=== PATIENT | female | born 1990 | race Caucasian/White ===

== ENCOUNTER 2023-05-31 10:03 | Emergency (ER) | payer MEDICARE, SELFPAY ==
[2023-05-31] VITALS (19 sets, daily range): BP systolic 113–129; BP diastolic 63–78; PULSE 58–75; RESP 18; TEMP 37.1; O2SAT 95–98; BMI 37.8
--- NOTE | 2023-05-31 11:22 | CRLHL7_ITS ---
For Patients: As a result of the Century Cures Act, medical imaging exams and procedure reports are released immediately into your electronic medical record. You may view this report before your referring provider. If you have questions, please contact your health care provider. INDICATION: Chest pain COMPARISON: None. TECHNIQUE: PA and lateral 2 view chest radiograph. FINDINGS: The lungs are well expanded. No focal consolidations. No pulmonary edema. No pleural effusion. No pneumothorax. No pneumomediastinum. Normal cardiomediastinal silhouette. Bones: Normal for age. IMPRESSION: Lungs are clear. Normal chest radiographs. Dictated by Jaylin Rogers MD @ 05/31/2023 1:07:41 PM (Electronically Signed)
[2023-05-31 11:36] LABS: Basophils Absolute Auto 0.04 K/uL (0.00-0.30); Basophils Percent Auto 0.5 % (0.0-3.0); Eosinophils Absolute Auto 0.11 K/uL (0.00-0.50); Eosinophils Percent Auto 1.4 % (0.0-7.0); Hematocrit 36.3 % (33.0-51.0); Hemoglobin* 11.1 gm/dL (12.0-16.0); Immature Granulocytes Abs Auto 0.01 K/uL (0.00-0.30); Immature Granulocytes Pct Auto 0.1 %; Lymphocytes Absolute Auto 1.75 K/uL (0.90-2.90); Lymphocytes Percent Auto 22.7 % (20-44); Mean Corpuscular HGB Conc 31 gm/dL (32-36); Mean Corpuscular Hemoglobin 25 pg (26-34); Mean Corpuscular Volume 80 fL (80-100); Monocytes Percent Auto 9.3 % (0.0-11.0); Neutrophils Absolute Auto 5.08 K/uL (1.7-7.0); Platelet Count* 331 K/uL (140-440); Red Blood Count 4.53 m/uL (4.00-5.20); White Blood Count* 7.71 K/uL (4.50-11.00)
[2023-05-31] MEDS: KETOROLAC 15 MG/ML inj IVP (11:37)
--- NOTE | 2023-05-31 11:40 | ED_ITS ---
HPI - Chest Pain General Date Seen: 05/31/23 Chief Complaint: Chest Pain Stated Complaint: chest pain Time Seen by Provider: 05/31/23 11:00 Source: patient Mode of arrival: ambulatory Limitations: no limitations History of Present Illness HPI narrative: Patient is a 32-year-old female with previous gastric bypass surgery 4 years prior and losing 350 lb presenting to emergency department for lightheadedness and chest pain. She states she has been weak and having this right-sided chest pain since this morning. It is tender to the touch. It radiates to her right shoulder. She does not remember injuring herself or any recent heavy lifting. She states with the lightheadedness she has had symptoms like this before. Has had issues with anemia since the procedure but is not yet needed a transfusion. She states in the past when she has had symptoms like this she will eat something and they will improved. She tried to eat today and symptoms did not improve. She states she does not feel like she is about to pass out but still does not feel like herself. She initially felt like she was going to pass out but did not. Denies fevers, chills, abdominal pain, headache, vision changes, diarrhea, constipation. Related Data Home Medications Medication Instructions Recorded Confirmed omeprazole 40 mg capsule,delayed 40 mg PO BID 05/31/23 05/31/23 release Allergies Allergy/AdvReac Type Severity Reaction Status Date / Time codeine Allergy Verified 05/31/23 10:09 Review of Systems Status of ROS Reports: 10 or more systems reviewed and unremarkable except as noted in History and below [facility] Social History Smoking Status: Current every day smoker What tobacco products do you use: cigarettes Smoking packs per day: 1 Smoking cigarettes per day: 20.0 Years smoked: 3 Smoking pack-years: 3.00 Do you use any of these nicotine containing products: None Second hand tobacco smoke exposure: Yes How often do you have a drink containing alcohol: 2-4 times a month How many standard drinks containing alcohol do you have on a typical day: 3 or 4 How often do you have six or more drinks on one occasion: Monthly AUDIT-C Alcohol total score: 5 Non-prescribed substance use: denies use service: No Exam Narrative Exam Narrative: Const: Well-nourished, Well-developed, in mild distress Eyes: PERRL, no conjunctival injection, and symmetrical lids HENT: Atraumatic external nose and ears. Moist mucous membranes. Neck: Symmetric, trachea midline, No thyromegaly. CVS: RRR, No murmurs or gallops. Peripheral pulses 2+ and equal in all extremities RESP: Unlabored respiratory effort. Clear to auscultation bilaterally. GI: Nontender/Nondistended, No rebound or guarding. MSK:Extremities w/o deformity, Normal Active ROM. Tenderness to palpation right upper chest Skin: Warm, Dry. No rashes or lesions. Neuro: Normal Muscle tone, No focal neurological deficits. Psych: Awake, Alert, & Oriented x3. Appropriate mood and affect. Const Vital Signs, click to edit/add: Vital Signs - 24 hr 05/31/23 10:12 05/31/23 10:37 05/31/23 10:45 Temperature 98.8 F Pulse Rate 75 62 Pulse Rate [Apical] 71 Respiratory Rate 18 Blood Pressure Blood Pressure [Right Upper Arm] 129/78 Pulse Oximetry 95 97 96 Oxygen Delivery Method Room Air 05/31/23 11:00 05/31/23 11:02 05/31/23 11:15 Temperature Pulse Rate 63 59 L 59 L Pulse Rate [Apical] Respiratory Rate Blood Pressure 115/66 Blood Pressure [Right Upper Arm] Pulse Oximetry 97 96 96 Oxygen Delivery Method 05/31/23 11:30 05/31/23 11:32 05/31/23 11:33 Temperature Pulse Rate 59 L 65 67 Pulse Rate [Apical] Respiratory Rate Blood Pressure 113/63 Blood Pressure [Right Upper Arm] Pulse Oximetry 95 96 95 Oxygen Delivery Method 05/31/23 11:45 05/31/23 12:00 05/31/23 12:05 Temperature Pulse Rate 66 69 65 Pulse Rate [Apical] Respiratory Rate Blood Pressure Blood Pressure [Right Upper Arm] Pulse Oximetry 95 96 97 Oxygen Delivery Method 05/31/23 12:15 05/31/23 12:30 05/31/23 12:34 Temperature Pulse Rate 62 64 63 Pulse Rate [Apical] Respiratory Rate Blood Pressure Blood Pressure [Right Upper Arm] Pulse Oximetry 96 96 97 Oxygen Delivery Method 05/31/23 12:46 05/31/23 13:00 05/31/23 13:02 Temperature Pulse Rate 58 L 66 64 Pulse Rate [Apical] Respiratory Rate Blood Pressure 115/71 Blood Pressure [Right Upper Arm] Pulse Oximetry 97 98 96 Oxygen Delivery Method 05/31/23 13:15 Temperature Pulse Rate 59 L Pulse Rate [Apical] Respiratory Rate Blood Pressure Blood Pressure [Right Upper Arm] Pulse Oximetry 98 Oxygen Delivery Method Course Vital Signs Vital signs: Initial Vital Signs Temperature 98.8 F 05/31/23 10:12 Temperature Source Temporal Artery Scan 05/31/23 10:12 Pulse Rate 71 05/31/23 10:12 Pulse Rhythm Regular 05/31/23 10:12 Respiratory Rate 18 05/31/23 10:12 Blood Pressure 129/78 05/31/23 10:12 Blood Pressure Mean 95 05/31/23 10:12 Blood Pressure Position Supine 05/31/23 10:12 Pulse Oximetry 95 05/31/23 10:12 Oxygen Delivery Method Room Air 05/31/23 10:12 Vital Signs Temperature 98.8 F 05/31/23 10:12 Pulse Rate 71 05/31/23 10:12 Respiratory Rate 18 05/31/23 10:12 Blood Pressure 129/78 05/31/23 10:12 Pulse Oximetry 95 05/31/23 10:12 Oxygen Delivery Method Room Air 05/31/23 10:12 Temperature 98.8 F 05/31/23 10:12 Pulse Rate 59 L 05/31/23 13:15 Respiratory Rate 18 05/31/23 10:12 Blood Pressure 115/71 05/31/23 13:02 Pulse Oximetry 98 05/31/23 13:15 Oxygen Delivery Method Room Air 05/31/23 10:12 Medications Administered Medications: Discontinued Medications Generic Name Dose Route Start Last Admin Trade Name Rohini PRN Reason Stop Dose Admin Lactated Ringer's 1,000 mls @ 1,000 mls/hr 05/31/23 11:56 05/31/23 12:51 Lactated Ringers 1000 Ml IV 05/31/23 12:55 Infused .Q1H ONE Infusion Ketorolac Tromethamine 15 mg 05/31/23 11:22 05/31/23 11:37 Ketorolac 15 Mg/Ml Inj IVP 05/31/23 11:23 15 mg ONCE ONE Administration MDM - Chest Pain MDM Narrative Medical decision making narrative: Patient is a 32-year-old female presenting for chest pain lightheadedness. Chest pain started today and is reproducible on palpation. Likely musculoskeletal nature but we will do cardiac workup to further evaluate this. She is also feeling lightheaded. She has history of anemia and has never checked her TSH before for that she is aware of this could be a thyroid issue foreign anemia. Of note the room does smoke marijuana. Symptoms could also be from electrolyte issue. Lab work returns showing no concerning abnormalities. Hemoglobin today 11.1 and would unlikely to be causing her symptoms. After the L fluids she was able to walk up to go the bathroom and is feeling much better. COVID and flu negative. Drug screen does show marijuana in her system which was expected. Does not appear to be hypoglycemic. Chest x-ray showed no acute findings. EKG shows no concerning findings. Insert what exactly is causing his symptoms. Could possibly be related to the marijuana. She will otherwise be discharged home. Lab Data Labs: Lab Results 05/31/23 05/31/23 05/31/23 Range/Units 10:48 11:00 11:29 WBC 7.71 (4.50-11.00) K/uL RBC 4.53 (4.00-5.20) m/uL Hgb 11.1 L (12.0-16.0) gm/dL Hct 36.3 (33.0-51.0) % MCV 80 (80-100) fL MCH 25 L (26-34) pg MCHC 31 L (32-36) gm/dL RDW Coeff of Autumn 17.0 H (11.5-15.5) % Plt Count 331 (140-440) K/uL Neut % (Auto) 66.0 (42.0-72.0) % Lymph % (Auto) 22.7 (20-44) % Treasure % (Auto) 9.3 (0.0-11.0) % Eos % (Auto) 1.4 (0.0-7.0) % Baso % (Auto) 0.5 (0.0-3.0) % Neut # (Auto) 5.08 (1.7-7.0) K/uL Lymph # (Auto) 1.75 (0.90-2.90) K/uL Treasure # (Auto) 0.70 (0.00-0.90) K/UL Eos # (Auto) 0.11 (0.00-0.50) K/uL Baso # (Auto) 0.04 (0.00-0.30) K/uL Abs Immat Gran (auto) 0.01 (0.00-0.30) K/uL Imm/Tot Granulo (auto) 0.1 % Sodium 140 (135-149) mmol/L Potassium 3.9 (3.6-5.1) mmol/L Chloride 110 (96-114) mmol/L Carbon Dioxide 23 (20-32) mmol/L Anion Gap 7 (7-15) mEq/L BUN 10 (5-24) mg/dL Creatinine 0.6 (0.5-1.5) mg/dL Estimated Creat Clear 115.16 Estimated GFR 121 ml/min Glucose 87 (60-115) mg/dL Calcium 8.3 L (8.4-10.6) mg/dL Total Bilirubin 0.2 (0.1-1.5) mg/dL AST 26 (12-35) U/L ALT 18 (4-35) U/L Alkaline Phosphatase 55 (40-150) U/L Total Protein 6.8 (6.0-8.3) g/dL Albumin 3.9 (3.3-5.0) g/dL TSH 1.770 (0.270-4.20) uIU/mL Urine Color (Yellow) Urine Appearance (Clear) Urine pH (5.0-8.5) Ur Specific [place] (1.000-1.030) Urine Protein (Negative) Urine Glucose (UA) (Negative) Urine Ketones (Negative) Urine Blood (Negative) Urine Nitrite (Negative) Urine Bilirubin (Negative) Urine Urobilinogen (0.2-1.0) Ur Leukocyte Esterase (Negative) Urine RBC (0-2) Urine WBC (0-5) Ur Squamous Epith Cells (None-Few) Urine Bacteria (None) Urine Mucus (None) Urine Opiates Screen (Negative) Ur Oxycodone Screen (Negative) Urine Methadone Screen (Negative) Ur Propoxyphene Screen Ur Barbiturates Screen (Negative) U Tricyclic Antidepress (Negative) Ur Phencyclidine Scrn (Negative) Ur Amphetamines Screen (Negative) U Methamphetamines Scrn (Negative) U Benzodiazepines Scrn (Negative) Urine Cocaine Screen (Negative) U Marijuana (THC) Screen (Negative) Ur Drug Screen Comment SARS-CoV-2 (PCR) Negative SARS-CoV-2 (Negative) Influenza Type A (PCR) Negative PCR FLU A (Negative) Influenza Type B (PCR) Negative PCR FLU B (Negative) Lab Acknowledgement POC Troponin I 0.00 L (0.01-0.04) ng/ml 05/31/23 05/31/23 05/31/23 Range/Units 13:23 13:40 Unknown WBC (4.50-11.00) K/uL RBC (4.00-5.20) m/uL Hgb (12.0-16.0) gm/dL Hct (33.0-51.0) % MCV (80-100) fL MCH (26-34) pg MCHC (32-36) gm/dL RDW Coeff of Autumn (11.5-15.5) % Plt Count (140-440) K/uL Neut % (Auto) (42.0-72.0) % Lymph % (Auto) (20-44) % Treasure % (Auto) (0.0-11.0) % Eos % (Auto) (0.0-7.0) % Baso % (Auto) (0.0-3.0) % Neut # (Auto) (1.7-7.0) K/uL Lymph # (Auto) (0.90-2.90) K/uL [place] # (Auto) (0.00-0.90) K/UL Eos # (Auto) (0.00-0.50) K/uL Baso # (Auto) (0.00-0.30) K/uL Abs Immat Gran (auto) (0.00-0.30) K/uL Imm/Tot Granulo (auto) % Sodium (135-149) mmol/L Potassium (3.6-5.1) mmol/L Chloride (96-114) mmol/L Carbon Dioxide (20-32) mmol/L Anion Gap (7-15) mEq/L BUN (5-24) mg/dL Creatinine (0.5-1.5) mg/dL Estimated Creat Clear Estimated GFR ml/min Glucose (60-115) mg/dL Calcium (8.4-10.6) mg/dL Total Bilirubin (0.1-1.5) mg/dL AST (12-35) U/L ALT (4-35) U/L Alkaline Phosphatase (40-150) U/L Total Protein (6.0-8.3) g/dL Albumin (3.3-5.0) g/dL TSH (0.270-4.20) uIU/mL Urine Color Yellow (Yellow) Urine Appearance Clear (Clear) Urine pH 7.0 (5.0-8.5) Ur Specific [place] 1.020 (1.000-1.030) Urine Protein Negative (Negative) Urine Glucose (UA) Negative (Negative) Urine Ketones Negative (Negative) Urine Blood Negative (Negative) Urine Nitrite Negative (Negative) Urine Bilirubin Negative (Negative) Urine Urobilinogen 4.0 A (0.2-1.0) Ur Leukocyte Esterase Negative (Negative) Urine RBC 0-2 (0-2) Urine WBC 0-2 (0-5) Ur Squamous Epith Cells Few (None-Few) Urine Bacteria None (None) Urine Mucus Moderate A (None) Urine Opiates Screen Negative (Negative) Ur Oxycodone Screen Negative (Negative) Urine Methadone Screen Negative (Negative) Ur Propoxyphene Screen Not Reportable Ur Barbiturates Screen Negative (Negative) U Tricyclic Antidepress Negative (Negative) Ur Phencyclidine Scrn Negative (Negative) Ur Amphetamines Screen Negative (Negative) U Methamphetamines Scrn Negative (Negative) U Benzodiazepines Scrn Negative (Negative) Urine Cocaine Screen Negative (Negative) U Marijuana (THC) Screen POSITIVE A (Negative) Ur Drug Screen Comment See Note SARS-CoV-2 (PCR) (Negative) Influenza Type A (PCR) (Negative) Influenza Type B (PCR) (Negative) Lab Acknowledgement Test Added POC Troponin I (0.01-0.04) ng/ml Imaging Data Chest x-ray: Radiologist's impression: Lungs are clear. Normal chest radiographs. Dictated by Jaylin Rogers MD @ 05/31/2023 1:07:41 PM ECG Data Attestation: I personally reviewed and interpreted this ECG as follows: Interpretation: EKG shows normal sinus rhythm with a rate of 66 beats per minute, normal intervals, normal axis, no ST or T-wave abnormalities Discharge Plan Discharge Clinical Impression: Chest pain Qualifiers: Chest pain type: unspecified Qualified Code(s): R07.9 - Chest pain, unspecified Patient Disposition: Home, Self-Care Condition: Stable Instructions: Chest Wall Pain (ED) Additional Instructions: If symptoms persist follow-up with the primary care provider. Return to emergency department for new or worsening symptoms Prescriptions: No Action omeprazole 40 mg capsule,delayed release(DR/EC) 40 mg PO BID Follow Up/Referrals: Provider,Not a Local [Primary Care Provider] - Stand Alone Forms: Se[employer] Info Instructions
[2023-05-31 11:43] LABS: Slide Review Reflex No
[2023-05-31 11:45] LABS: Albumin* 3.9 g/dL (3.3-5.0); Chloride* 110 mmol/L (96-114); Potassium* 3.9 mmol/L (3.6-5.1); Sodium* 140 mmol/L (135-149)
[2023-05-31 11:48] LABS: Alanine Aminotransferase* 18 U/L (4-35); Alkaline Phosphatase* 55 U/L (40-150); Anion Gap 7 mEq/L (7-15); Aspartate Amino Transferase* 26 U/L (12-35); Bilirubin Total* 0.2 mg/dL (0.1-1.5); Blood Urea Nitrogen* 10 mg/dL (5-24); Carbon Dioxide* 23 mmol/L (20-32); Creatinine* 0.6 mg/dL (0.5-1.5); Est. Creatinine Clearance* 115.16; Estimated Glomerular Filt Rate 121 ml/min; Glucose* 87 mg/dL (60-115); Total Protein* 6.8 g/dL (6.0-8.3)
[2023-05-31 11:49] LABS: Calcium* 8.3 mg/dL (8.4-10.6)
[2023-05-31] MEDS: LACTATED RINGERS 1000 ML 1,000 ML IV (12:04)
[2023-05-31 12:30] LABS: PCR FLU A Negative PCR FLU A (Negative); PCR FLU B Negative PCR FLU B (Negative)
[2023-05-31 12:31] LABS: SARS PCR* Negative SARS-CoV-2 (Negative)
[2023-05-31 13:54] LABS: Appearance Urine Clear (Clear); Bilirubin Urine Negative (Negative); Blood Urine Negative (Negative); Color Urine Yellow (Yellow); Glucose Urine Negative (Negative); Ketones Urine Negative (Negative); Leukocyte Esterase Urine Negative (Negative); Nitrite Urine Negative (Negative); Protein Urine Negative (Negative)
[2023-05-31 14:05] LABS: RBC Urine 0-2 (0-2); Squamous Epithelial Cell Urine Few (None-Few); WBC Urine 0-2 (0-5)
[2023-05-31 14:06] LABS: Mucus Urine Moderate
[2023-05-31 14:28] LABS: Amphetamine Screen Urine Negative (Negative); Barbiturate Screen Urine Negative (Negative); Benzodiazepines Screen Urine Negative (Negative); Cannabinoid Screen Urine POSITIVE (Negative); Cocaine Screen Urine Negative (Negative); Methadone Screen Urine Negative (Negative); Methamphetamines Screen Urine Negative (Negative); Opiate Screen Urine Negative (Negative); Oxycodone Screen Urine Negative (Negative); Phencyclidine Screen Urine Negative (Negative); Tricyclic Antidepressant Urine Negative (Negative)
== END 2023-05-31 14:53 | disposition home or self-care (01) ==
PROVIDERS: Emergency Provider Student in an Organized Health Care Education/Training Program
DX: R07.9 Chest pain, unspecified (principal)
CPT/HCPCS: 36415; 71046; 80053; 80306; 81001; 84443; 84484; 85025; 87631; 93005; 96374; 99283; 99284; 99285; J1885; J7120